=== PATIENT | male | born 1955 | race Caucasian/White ===

== ENCOUNTER → 2020-02-04 06:53 | Outpatient (CLI) | payer OTHER, SELFPAY ==
[2020-02-04 08:48] LABS: Add Manual Diff / Slide Review NO; Basophils Absolute Auto 0 /uL (0-100); Basophils Percent Auto 0.9 % (0-2); Eosinophils Absolute Auto 100 /uL (0-450); Eosinophils Percent Auto 1.6 % (2-4); Hematocrit 40.8 % (41-53); Hemoglobin 14.1 g/dL (13.5-17.5); Lymphocytes Absolute Auto 1500 /uL (1100-4500); Lymphocytes Percent Auto 42.1 % (25-40); Mean Corpuscular HGB Conc 34.4 % (30-36); Mean Corpuscular Hemoglobin 31.4 PG (26-34); Mean Corpuscular Volume 91.2 fL (80-100); Monocytes Absolute Auto 400 /uL (0-900); Monocytes Percent Auto 10.9 % (3-14); Neutrophils Absolute Auto 1600 /uL (1500-7000); Neutrophils Percent Auto 44.5 % (50-75); Platelet Count 281 X10^3/uL (150-400); Red Blood Cell Count 4.48 X10^6/uL (4.5-5.9); Red Cell Distribution Width 13.6 % (11.6-14.8); White Blood Cell Count 3.5 X10^3/uL (4.5-11.0)
[2020-02-04 09:29] LABS: Alanine Aminotransferase 27 IU/L (<50); Albumin Globulin Ratio 1.5 (1.0-2.8); Alkaline Phosphatase 57 U/L (38-126); Aspartate Aminotransferase 33 IU/L (17-59); BUN Creatinine Ratio 15.8 (6-22); Bilirubin Total 0.5 mg/dL (0.2-1.3); Blood Urea Nitrogen 15 mg/dL (9-20); Calcium 9.5 mg/dL (8.4-10.2); Carbon Dioxide 29 mmol/L (22-32); Chloride 99 mmol/L (98-107); Cholesterol 189 mg/dL (140-199); Estimated Glomerular Filt Rate > 60.0 mL/min (>60); Globulin 2.6 g/dL (1.7-4.1); Glucose 94 mg/dL (80-110); HDL Cholesterol 62 mg/dL (40-60); HEMOLYSIS < 15 (0-50); LDL Cholesterol Calculated 115 mg/dL (<100); Potassium 4.7 mmol/L (3.4-5.1); Sodium 131 mmol/L (137-145); Total Protein 6.6 g/dL (6.3-8.2); Triglycerides 60 mg/dL (35-150)
== END ==
PROVIDERS: PCP Family Medicine; Referring Provider Family Medicine; Visit Provider Family Medicine
DX: Z00.00 Encounter for general adult medical examination without abnormal findings (principal); Z13.220 Encounter for screening for lipoid disorders
CPT/HCPCS: 36415; 80053; 80061; 85025

== ENCOUNTER → 2020-02-11 16:25 | Outpatient (CLI) | payer OTHER, SELFPAY ==
[2020-02-11 18:28] LABS: Prostate Specific Antigen Scrn 2.15 ng/mL (0.1-4.0)
== END ==
PROVIDERS: PCP Family Medicine; Referring Provider Family Medicine; Visit Provider Family Medicine
DX: Z12.5 Encounter for screening for malignant neoplasm of prostate (principal)
CPT/HCPCS: 36415; G0103

== ENCOUNTER → 2020-11-08 12:53 | Outpatient (CLI) | payer OTHER, SELFPAY ==
--- NOTE | 2020-11-08 12:55 | DI.RAD.S_ITS ---
PROCEDURE: XR CHEST 2V INDICATIONS: wheezing TECHNIQUE: 2 views of the chest were acquired. COMPARISON: None. FINDINGS: Surgical changes and devices: None. Lungs and pleura: Lungs are hyperinflated but clear. No pleural effusions or pneumothorax. Mediastinum: Mediastinal contours are normal. Heart size is normal. Bones and chest wall: No suspicious bony abnormalities. Soft tissues appear unremarkable. IMPRESSION: Hyperinflation suggests asthma or emphysema. Dictated by: Crystal Brewer M.D. on 11/08/2020 at 14:29 Approved by: Crystal Brewer M.D. on 11/08/2020 at 14:29
== END ==
PROVIDERS: PCP Family Medicine; Referring Provider Family Medicine; Visit Provider Family Medicine
DX: R06.2 Wheezing (principal); R07.89 Other chest pain
CPT/HCPCS: 71046

== ENCOUNTER → 2020-12-01 09:20 | Outpatient (CLI) | payer OTHER, SELFPAY ==
[2020-12-01 10:36] LABS: COVID19 -Nasal RAPID Negative (Negative)
== END ==
PROVIDERS: PCP Family Medicine; Referring Provider Specialist; Visit Provider Specialist
DX: Z20.822 Contact with and (suspected) exposure to COVID-19 (principal)
CPT/HCPCS: 87635; C9803

== ENCOUNTER 2020-12-04 14:10 | Day surgery (SDC) | payer OTHER, SELFPAY ==
[2020-12-04] VITALS (7 sets, daily range): BP systolic 89–107; BP diastolic 53–64; PULSE 65–73; RESP 8–16; TEMP 36.3–37.1; O2SAT 95–100; BMI 23.2
--- NOTE | 2020-12-04 | PATH_ITS ---
[facility] Accession Number: [id number] . 01 Material submitted: . sigmoid colon - SIGMOID POLYP . 02 Diagnosis: Sigmoid Colon, Polyp, Biopsy: Hyperplastic polyp. MRV 12/06/2020 1244 Local . 02 Electronically signed: . Charisma Bowman MD, Pathologist NPI- [id number] . 01 Gross description: . SIGMOID POLYP: Received in formalin are 2 fragment(s) of mohr, soft tissue measuring 0.2 x 0.2 x 0.2 cm to 0.3 x 0.2 x 0.2 cm submitted entirely in 1 cassette(s) /BUNNY 12/05/2020 1856 Local . 02 Pathologist provided ICD-10: K63.5 . 02 CPT . 171889 Performed at: 01 [facility] [address] [id number] MD Dontrell Varghese MD Phone: [phone] Performed at: 02 [facility] [address] [place], [place] [id number] MD Charisma Bowman MD Phone: [phone]
[2020-12-04] MEDS: LACTATED RINGERS 1,000 ML 200 ML IV (14:40)
--- NOTE | 2020-12-04 14:53 | PM.PREOP ---
Pre-operative Note Interval Note History & Physical reviewed/Exam performed by Physician: Yes Changes to H&P: No
[2020-12-04] MEDS: fentaNYL 250 MCG/5 ML INJ IV (14:57)
[2020-12-04] MEDS: LIDOCAINE 4% SOLN 50 ML 20 ML TOP (14:57)
[2020-12-04] MEDS: MIDAZOLAM 5 MG/5 ML VIAL IV (14:58)
--- NOTE | 2020-12-04 15:39 | PM.OP.ENDO ---
Operative Date/Time/Diagnoses Date of procedure: 12/04/20 Time of procedure: 15:40 Pre-op diagnosis: Dysphagia, screening colonoscopy Post-op diagnosis: same Procedure & Clinicians Study performed: Esophagoduodenoscopy and colonoscopy Same procedure as scheduled: Yes Indications: Difficulty swallowing, screening Surgeon: Abdiaziz Polo Procedure Notes Procedure in detail: Medications: Conscious sedation using 7mg IV midazolam and 100mcg IV of fentanyl The history and physical was performed/updated and the patient is ASA class is 1. The procedure was discussed in detail with the patient. Potential risks complications including infection, bleeding, missed diagnosis, perforation, need for surgery, and were explained. Their questions were answered and informed consent was obtained. Patient placed in left lateral decubitus position. Time out was performed. Procedural sedation was administered with Versed and Fentanyl. A bite block was placed. the scope was inserted into the mouth and advanced through the esophagus and into the stomach. The pylorus was intubated and the duodenum was normal to the 2nd portion. The scope was retroflexed within the stomach and there was no small hiatal hernia. No ulcers, or gastritis. The scope was withdrawn into the esophagus the Z line was seen at 40 cm from the incisions. There was no Julien's esophagitis or masses or strictures. Stomach was desufflated and scope removed. The vocal cords and epiglotits were grossly normal in appearance. the posterior oropharynx was significant for thrush. Patient tolerated procedure well. Examination began with a thorough inspection of the perianal area there was no evidence of fissures, fistulae, external hemorrhoids or cutaneous malignancy. The colonoscopy scope was then placed into the anal canal and was advanced to the cecum, which was identified by the ileocecal valve, the appendiceal orifice and the confluence of the taenia. The scope was then slowly withdrawn examining colon thoroughly in all directions, irrigating it of any residual stool. The patient tolerated the procedure well. They will be discharged once criteria are met. The prep was of good/excellent quality. The withdrawl time was 6 minutes. The sedation time was 26 minutes. FINDINGS 1.Thrush 2. Sigmoid polyp 5mm removed with biopsy forceps 3. Grade 2 internal hemorrhoids Findings: other findings (thrush) Specimen(s): other (sigmoid polyp) Impression: thrush Post-procedure Recommendations: Colonscopy in 5 years and Other recommendation (nystatin) Disposition: same day surgery
--- NOTE | 2020-12-04 15:42 | SUR.PHASEI ---
Arrived arousable, patent airway, self maintained.
--- NOTE | 2020-12-04 15:53 | SUR.PHASEI ---
Stable PACU stay
--- NOTE | 2020-12-04 17:01 | SUR.PHASEII ---
called, waited for pharmacy picking technician, pt aware to stop at [facility] for nystatin
== END 2020-12-04 16:45 | disposition home or self-care (01) ==
PROVIDERS: PCP Family Medicine; Referring Provider Surgery; Visit Provider Surgery
PROC: 0DJ08ZZ Inspection of Upper Intestinal Tract, Via Natural or Artificial Opening Endoscopic (ICD-10-PCS; CPT 43235; principal; 2020-12-04 11:30)
PROC: 0DJD8ZZ Inspection of Lower Intestinal Tract, Via Natural or Artificial Opening Endoscopic (ICD-10-PCS; CPT 45378; 2020-12-04 11:30)
DX: Z12.11 Encounter for screening for malignant neoplasm of colon (principal); R13.10 Dysphagia, unspecified; K64.1 Second degree hemorrhoids; K21.00 Gastro-esophageal reflux disease with esophagitis, without bleeding; B37.81 Candidal esophagitis; K63.5 Polyp of colon
CPT/HCPCS: 45380; 43235; 99152; 99153; J2250; J3010

== ENCOUNTER → 2021-04-06 07:02 | Outpatient (CLI) | payer OTHER, SELFPAY ==
[2021-04-06 08:40] LABS: Add Manual Diff / Slide Review NO; Basophils Absolute Auto 0 /uL (0-100); Eosinophils Absolute Auto 100 /uL (0-450); Eosinophils Percent Auto 2.1 % (2-4); Hematocrit 39.4 % (41-53); Hemoglobin 13.6 g/dL (13.5-17.5); Lymphocytes Absolute Auto 1400 /uL (1100-4500); Lymphocytes Percent Auto 42.4 % (25-40); Mean Corpuscular HGB Conc 34.6 % (30-36); Mean Corpuscular Hemoglobin 31.4 PG (26-34); Mean Corpuscular Volume 90.9 fL (80-100); Monocytes Absolute Auto 400 /uL (0-900); Monocytes Percent Auto 12.3 % (3-14); Neutrophils Absolute Auto 1400 /uL (1500-7000); Neutrophils Percent Auto 42.2 % (50-75); Platelet Count 252 X10^3/uL (150-400); Red Blood Cell Count 4.33 X10^6/uL (4.5-5.9); Red Cell Distribution Width 13.7 % (11.6-14.8); White Blood Cell Count 3.3 X10^3/uL (4.5-11.0)
[2021-04-06 09:19] LABS: Alanine Aminotransferase 22 IU/L (<50); Albumin 3.9 g/dL (3.5-5.0); Albumin Globulin Ratio 1.7 (1.0-2.8); Alkaline Phosphatase 46 U/L (38-126); Aspartate Aminotransferase 28 IU/L (17-59); BUN Creatinine Ratio 12.2 (6-22); Bilirubin Total 0.6 mg/dL (0.2-1.3); Blood Urea Nitrogen 10 mg/dL (9-20); Calcium 9.3 mg/dL (8.4-10.2); Carbon Dioxide 28 mmol/L (22-32); Chloride 94 mmol/L (98-107); Cholesterol 181 mg/dL (140-199); Estimated Glomerular Filt Rate > 60.0 mL/min (>60); Globulin 2.3 g/dL (1.7-4.1); Glucose 93 mg/dL (80-110); HDL Cholesterol 53 mg/dL (40-60); HEMOLYSIS < 15 (0-50); LDL Cholesterol Calculated 118 mg/dL (<100); Potassium 4.8 mmol/L (3.4-5.1); Sodium 129 mmol/L (137-145); Total Protein 6.2 g/dL (6.3-8.2); Triglycerides 52 mg/dL (35-150)
[2021-04-06 09:38] LABS: Prostate Specific Antigen Scrn 2.35 ng/mL (0.1-4.0)
== END ==
PROVIDERS: PCP Family Medicine; Referring Provider Family Medicine; Visit Provider Family Medicine
DX: E78.00 Pure hypercholesterolemia, unspecified (principal); Z12.5 Encounter for screening for malignant neoplasm of prostate
CPT/HCPCS: 36415; 80053; 80061; 85025; G0103

== ENCOUNTER → 2021-04-18 08:37 | Outpatient (CLI) | payer OTHER, SELFPAY ==
[2021-04-18 13:30] LABS: COVID19 -Nasal RAPID POSITIVE (Negative)
== END ==
PROVIDERS: PCP Family Medicine; Visit Provider Nurse Practitioner Family
DX: Z20.822 Contact with and (suspected) exposure to COVID-19 (principal); R05.9 Cough, unspecified
CPT/HCPCS: 87635

== ENCOUNTER → 2021-07-24 16:09 | Outpatient (CLI) | payer OTHER, SELFPAY | PROVIDERS: PCP Family Medicine; Visit Provider Family Medicine | DX: M70.22 Olecranon bursitis, left elbow (principal) | CPT/HCPCS: 87070; 87075; 87205 ==

== ENCOUNTER → 2022-03-15 07:01 | Outpatient (CLI) | payer OTHER, SELFPAY ==
[2022-03-15 08:08] LABS: Add Manual Diff / Slide Review NO; Basophils Absolute Auto 0 /uL (0-100); Eosinophils Absolute Auto 100 /uL (0-450); Eosinophils Percent Auto 2.1 % (2-4); Hematocrit 43.1 % (41-53); Hemoglobin 14.6 g/dL (13.5-17.5); Lymphocytes Absolute Auto 1600 /uL (1100-4500); Lymphocytes Percent Auto 47.2 % (25-40); Mean Corpuscular Hemoglobin 30.9 PG (26-34); Mean Corpuscular Volume 91.1 fL (80-100); Monocytes Absolute Auto 300 /uL (0-900); Monocytes Percent Auto 10.2 % (3-14); Neutrophils Absolute Auto 1300 /uL (1500-7000); Neutrophils Percent Auto 39.5 % (50-75); Platelet Count 248 X10^3/uL (150-400); Red Blood Cell Count 4.73 X10^6/uL (4.5-5.9); White Blood Cell Count 3.3 X10^3/uL (4.5-11.0)
[2022-03-15 08:44] LABS: Alanine Aminotransferase 27 IU/L (<50); Albumin Globulin Ratio 1.5 (1.0-2.8); Alkaline Phosphatase 54 U/L (38-126); Aspartate Aminotransferase 33 IU/L (17-59); BUN Creatinine Ratio 13.3 (6-22); Bilirubin Total 0.6 mg/dL (0.2-1.3); Blood Urea Nitrogen 11 mg/dL (9-20); Calcium 9.2 mg/dL (8.4-10.2); Carbon Dioxide 30 mmol/L (22-32); Chloride 96 mmol/L (98-107); Cholesterol 197 mg/dL (140-199); Estimated Glomerular Filt Rate > 60 mL/min (>60); Globulin 2.7 g/dL (1.7-4.1); Glucose 86 mg/dL (80-110); HDL Cholesterol 62 mg/dL (40-60); HEMOLYSIS < 15 (0-50); LDL Cholesterol Calculated 126 mg/dL (<100); Potassium 4.5 mmol/L (3.4-5.1); Sodium 133 mmol/L (137-145); Total Protein 6.7 g/dL (6.3-8.2); Triglycerides 47 mg/dL (35-150)
[2022-03-15 09:08] LABS: Prostate Specific Antigen Scrn 2.79 ng/mL (0.1-4.0)
== END ==
PROVIDERS: PCP Family Medicine; Referring Provider Family Medicine; Visit Provider Family Medicine
DX: Z00.00 Encounter for general adult medical examination without abnormal findings (principal); E78.00 Pure hypercholesterolemia, unspecified; Z12.5 Encounter for screening for malignant neoplasm of prostate
CPT/HCPCS: 36415; 80053; 80061; 85025; G0103

== ENCOUNTER → 2022-06-07 09:12 | Outpatient (CLI) | payer OTHER, SELFPAY ==
--- NOTE | 2022-06-07 09:13 | DI.RAD.S_ITS ---
PROCEDURE: XR HIP W PEL IF DONE RT 2V INDICATIONS: groin pain TECHNIQUE: AP pelvis with lateral view(s) of the right hip(s). COMPARISON: None. FINDINGS: Bones: No fractures or dislocations. Pelvic ring appears intact. No suspicious bony lesions. [id number]-cl-[id number] bilateral degenerative hip joint space narrowing, right greater than left. No erosions. Soft tissues: The visualized bowel gas pattern is normal. No suspicious soft tissue calcifications. IMPRESSION: Bilateral hip arthritis, right greater than left. Dictated by: Diamond Love M.D. on 06/07/2022 at 12:23 Approved by: Diamond Love M.D. on 06/07/2022 at 12:24
== END ==
PROVIDERS: PCP Family Medicine; Referring Provider Family Medicine; Visit Provider Family Medicine
DX: M25.551 Pain in right hip (principal); M16.0 Bilateral primary osteoarthritis of hip
CPT/HCPCS: 73502

== ENCOUNTER → 2022-11-13 08:08 | Outpatient (CLI) | payer OTHER, SELFPAY ==
--- NOTE | 2022-11-13 08:09 | DI.RAD.S_ITS ---
PROCEDURE: XR SHOULDER LT MIN 2V INDICATIONS: Left Shoulder Pain TECHNIQUE: 3 views of the shoulder were acquired. COMPARISON: None. FINDINGS: Bones: No fractures or dislocations. No suspicious bony lesions. Mild degenerative changes of the acromioclavicular and glenohumeral joints. Mild marginal spurring of the glenohumeral joint. Visualized ribs appear intact. Soft tissues: No suspicious soft tissue calcifications. IMPRESSION: Mild degenerative changes of the glenohumeral and acromioclavicular joints. Dictated by: Priyank Quintanilla M.D. on 11/13/2022 at 8:53 Approved by: Priyank Quintanilla M.D. on 11/13/2022 at 8:55
== END ==
PROVIDERS: PCP Family Medicine; Referring Provider Anesthesiology; Visit Provider Anesthesiology
DX: M75.42 Impingement syndrome of left shoulder (principal); M19.012 Primary osteoarthritis, left shoulder; M25.512 Pain in left shoulder
CPT/HCPCS: 73030; 76882; 99213

== ENCOUNTER → 2022-11-25 13:48 | Outpatient (CLI) | payer OTHER, SELFPAY ==
--- NOTE | 2022-11-25 14:06 | DI.MRI.S_ITS ---
PROCEDURE: MR SHOULDER LT WO CON INDICATIONS: left shoulder bicep and subscapularis TECHNIQUE: Noncontrast oblique coronal T2 fast spin echo with fat saturation, oblique sagittal T1 spin echo and T2 fast spin echo with fat saturation, axial T1 spin echo and T2 fast spin echo with fat saturation through the shoulder. COMPARISON: [facility], CR, XR SHOULDER LT MIN 2V, 11/13/2022, 8:04. FINDINGS: Image quality: Excellent. Rotator cuff: Moderate T2 signal elevation diffusely throughout the supraspinatus and infraspinatus tendons at the humeral insertion sites extending to the musculotendinous junctions, indicating tendinopathy. Low-grade articular surface tearing of the anterior supraspinatus as well as the posterior supraspinatus and anterior infraspinatus tendon junctions the humeral insertion sites extending to the musculotendinous junction. Low-grade partial-thickness intrasubstance tearing of the upper, mid, and inferior subscapularis tendon at the humeral insertion site extending to the musculotendinous junction. Teres minor is intact. Bones and bursae: No bone marrow contusions or fractures. Moderate acromioclavicular joint degeneration. The acromion demonstrates conventional anatomy, without an os acromiale. No pathologic subacromial-subdeltoid or subcoracoid bursal fluid is present. Capsule and soft tissues: There is undercutting of the posteroinferior labrum secondary to high T2 signal. The long head of the biceps tendon demonstrates normal location and partial-thickness tearing. The rotator interval appears normal, without fibrosis. The coracohumeral ligament is normal in thickness. IMPRESSION: 1. Supraspinatus and infraspinatus tendinopathy. 2. Low-grade partial-thickness tears of the subscapularis, supraspinatus, and infraspinatus tendons. 3. Acromioclavicular joint osteoarthritis. 4. Possible posterior labral tearing. 5. Partial thickness biceps tendon tearing. Dictated by: Morgan Manrique M.D. on 11/25/2022 at 14:35 Approved by: Morgan Manrique M.D. on 11/25/2022 at 14:39
== END ==
PROVIDERS: PCP Family Medicine; Referring Provider Physical Medicine & Rehabilitation; Visit Provider Physical Medicine & Rehabilitation
DX: M75.112 Incomplete rotator cuff tear or rupture of left shoulder, not specified as traumatic (principal); M19.012 Primary osteoarthritis, left shoulder; S46.112A Strain of muscle, fascia and tendon of long head of biceps, left arm, initial encounter; M75.42 Impingement syndrome of left shoulder
CPT/HCPCS: 73221

== ENCOUNTER → 2023-04-16 06:58 | Outpatient (CLI) | payer OTHER, SELFPAY ==
[2023-04-16 08:30] LABS: Add Manual Diff / Slide Review NO; Basophils Absolute Auto 0 /uL (0-100); Basophils Percent Auto 0.9 % (0-2); Eosinophils Absolute Auto 100 /uL (0-450); Eosinophils Percent Auto 2.5 % (2-4); Hematocrit 42.1 % (41-53); Hemoglobin 14.5 g/dL (13.5-17.5); Lymphocytes Absolute Auto 1700 /uL (1100-4500); Mean Corpuscular HGB Conc 34.4 % (30-36); Mean Corpuscular Hemoglobin 31.2 PG (26-34); Mean Corpuscular Volume 90.8 fL (80-100); Monocytes Absolute Auto 400 /uL (0-900); Monocytes Percent Auto 11.3 % (3-14); Neutrophils Absolute Auto 1500 /uL (1500-7000); Neutrophils Percent Auto 40.3 % (50-75); Platelet Count 257 X10^3/uL (150-400); Red Blood Cell Count 4.64 X10^6/uL (4.5-5.9); Red Cell Distribution Width 13.5 % (11.6-14.8); White Blood Cell Count 3.8 X10^3/uL (4.5-11.0)
[2023-04-16 08:52] LABS: Alanine Aminotransferase 25 IU/L (<50); Albumin 4.1 g/dL (3.5-5.0); Albumin Globulin Ratio 1.5 (1.0-2.8); Alkaline Phosphatase 49 U/L (38-126); Aspartate Aminotransferase 32 IU/L (17-59); BUN Creatinine Ratio 12.5 (6-22); Bilirubin Total 0.8 mg/dL (0.2-1.3); Blood Urea Nitrogen 11 mg/dL (9-20); Calcium 9.4 mg/dL (8.4-10.2); Carbon Dioxide 26 mmol/L (22-32); Chloride 96 mmol/L (98-107); Cholesterol 203 mg/dL (140-199); Estimated Glomerular Filt Rate > 60 mL/min (>60); Globulin 2.7 g/dL (1.7-4.1); Glucose 89 mg/dL (80-110); HDL Cholesterol 55 mg/dL (40-60); HEMOLYSIS < 15 (0-50); LDL Cholesterol Calculated 138 mg/dL (<100); Potassium 4.9 mmol/L (3.4-5.1); Sodium 129 mmol/L (137-145); Total Protein 6.8 g/dL (6.3-8.2); Triglycerides 49 mg/dL (35-150)
[2023-04-16 09:21] LABS: Prostate Specific Antigen Scrn 3.72 ng/mL (0.1-4.0)
== END ==
PROVIDERS: PCP Family Medicine; Referring Provider Family Medicine; Visit Provider Family Medicine
DX: Z12.5 Encounter for screening for malignant neoplasm of prostate (principal); E78.00 Pure hypercholesterolemia, unspecified; E87.1 Hypo-osmolality and hyponatremia; D72.810 Lymphocytopenia
CPT/HCPCS: 36415; 80053; 80061; 85025; G0103

== ENCOUNTER → 2023-06-27 06:56 | Outpatient (CLI) | payer OTHER, SELFPAY ==
[2023-06-27 10:40] LABS: Prostate Specific Antigen 3.06 ng/mL (0.10-4.00)
== END ==
LOC: LAB 06:57
PROVIDERS: PCP Family Medicine; Referring Provider Family Medicine; Visit Provider Family Medicine
DX: R97.20 Elevated prostate specific antigen [PSA] (principal)
CPT/HCPCS: 36415; 84153

== ENCOUNTER → 2023-07-04 07:59 | Outpatient (CLI) | payer OTHER, SELFPAY ==
[2023-07-04 09:06] LABS: Cholesterol 201 mg/dL (140-199); HDL Cholesterol 61 mg/dL (40-60); LDL Cholesterol Calculated 120 mg/dL (<100); Triglycerides 102 mg/dL (35-150)
[2023-07-04 09:35] LABS: Prostate Specific Antigen Scrn 3.71 ng/mL (0.1-4.0)
== END ==
PROVIDERS: PCP Family Medicine; Referring Provider Family Medicine; Visit Provider Family Medicine
DX: E78.00 Pure hypercholesterolemia, unspecified (principal); Z12.5 Encounter for screening for malignant neoplasm of prostate; R97.20 Elevated prostate specific antigen [PSA]
CPT/HCPCS: 36415; 80061; G0103

== ENCOUNTER → 2024-03-23 07:04 | Outpatient (CLI) | payer OTHER, SELFPAY ==
[2024-03-23 09:14] LABS: Prostate Specific Antigen Scrn 3.98 ng/mL (0.1-4.0)
== END ==
PROVIDERS: PCP Family Medicine; Referring Provider Family Medicine; Visit Provider Family Medicine
DX: Z12.5 Encounter for screening for malignant neoplasm of prostate (principal)
CPT/HCPCS: 36415; G0103

== ENCOUNTER 2024-09-13 12:55 | Emergency (ER) | payer OTHER, SELFPAY ==
[2024-09-13 13:22] VITALS: BP 136/72; PULSE 69; RESP 16; TEMP 36.6; O2SAT 97; BMI 23.6
[2024-09-13 14:46] LABS: Urine Volume 10mL (spun)
[2024-09-13 14:48] LABS: Bacteria Urine None Seen; Culture Indicated Urine Specimen Cultured; Squamous Epithelial Cell Urine None Seen (0-5/HPF); WBC Urine 10-30/HPF (0-5/HPF)
[2024-09-13 14:55] LABS: RBC Urine None Seen (0-5/HPF)
--- NOTE | 2024-09-13 15:19 | ED_ITS ---
HPI - Male Genitourinary General Chief complaint: Urogenital-Male Stated complaint: sent from PCP Possible UTI Time Seen by Provider: 09/13/24 14:12 Source: patient Mode of arrival: Ambulatory History of Present Illness HPI Narrative: 69-year-old male with no chronic medical issues presents to the emergency department for evaluation of difficulty with urination and dysuria for 4 days. On review of systems endorses constipation, denies fever flank pain or abdominal pain. Reports is having his PSAs serial checked by his PCP but no formal diagnosis of enlarged prostate. Patient denies any genitourinary swelling. No testicular pain Review of systems 6 point review of systems obtained and negative except as stated in HPI Related Data Home Medications Medication Instructions Recorded Confirmed No Known Home Medications 06/06/22 09/13/24 Allergies Allergy/AdvReac Type Severity Reaction Status Date / Time No Known Drug Allergies Allergy Verified 09/13/24 13:24 Patient History Medical History Upper extremity somatic dysfunction Finger pain, right Right medial knee pain Increased prostate specific antigen (PSA) velocity Acute degenerative joint disease of shoulder region Subacromial impingement of left shoulder Injury of left shoulder Olecranon bursitis, left elbow Acute right hip pain Dupuytren's contracture of left hand Seborrheic keratosis Hyponatremia Lymphopenia Chronic throat clearing Pure hypercholesterolemia Lumbar region somatic dysfunction Thoracic region somatic dysfunction Cervical somatic dysfunction Hyperinflation of lungs Wheezing on exhalation Sensation of chest tightness Sacral region somatic dysfunction Pelvic somatic dysfunction Segmental and somatic dysfunction of abdomen and other regions Encounter for screening colonoscopy Atypical nevi Changes in vision Back stiffness Foot pain (~2013) Ankle pain (~2013) Mumps Measles Chicken pox Hearing loss Irritable bowel syndrome History of basal cell cancer Segmental and somatic dysfunction of lower extremity Contracture, left foot GERD without esophagitis Family History Mother Cancer Brother No problems noted. Social History household members: spouse Smoking Status: Never smoker alcohol intake: never substance use type: does not use Smoking Status: Never smoker Exam Initial Vital Signs Initial Vital Signs: Vital Signs Temperature 98 F 09/13/24 13:22 Pulse Rate 69 09/13/24 13:22 Respiratory Rate 16 09/13/24 13:22 Blood Pressure 136/72 09/13/24 13:22 Pulse Oximetry 97 09/13/24 13:22 Oxygen Delivery Method Room Air 09/13/24 13:22 Constitutional: Well appearing, no acute distress Head: NCAT Cardiovascular: RRR, no murmur or rub, 2+ radial pulses Pulmonary: CTA bilaterally, no respiratory distress Abdominal: soft, non-tender, no pulsatile mass, no CVA tenderness Skin: warm and dry, no diaphoresis Neurological: Alert and oriented x3 Const General: healthy appearing Course Orders Ordered: ED Orders 09/13/24 14:35 Urine Culture Stat Urine Microscopic Stat Vital Signs Vital signs: Vital Signs - 8 hr 09/13/24 13:22 Temperature 98 F Pulse Rate 69 Respiratory Rate 16 Blood Pressure 136/72 Pulse Oximetry 97 Oxygen Delivery Method Room Air MDM - Male Genitourinary Medical Records Medical records narrative: Differential diagnoses considered for dysuria include acute cystitis or urethritis, prostatitis, urolithiasis, urethral stricture or obstruction, interstitial cystitis UA shows +WBCs without RBCs or bacteria. PVR = 80 cc Informed patient and family of pyuria. We discussed possible etiology of cystitis although given symptoms have improved for patient over the last half day he would like to avoid antibiotics unless confirmed to be bacterial infection. Urinalysis is sent for culture. He is relieved to hear he is not having urinary retention. At this time patient is eager for discharge so that he can catch the [place] [facility]. He is provided with referral to urologist. Return precautions discussed and provided prior to discharge Lab Data Labs: Lab Results 09/13/24 Range/Units 14:35 Urine RBC None seen (0-5/HPF) Urine WBC 10-30/hpf H (0-5/HPF) Ur Squamous Epith Cells None seen (0-5/HPF) Urine Bacteria None seen (None) Ur Culture Indicated? Specimen cultured Vol Urine Centrifuged 10ml (spun) Urine Dip Bedside Urine Glucose Negative Bedside Urine Bilirubin - Negative Bedside Urine Ketone - Negative Urine Specific [place] 1.005 Bedside Urine Occult Blood - Negative Bedside Urine pH 6.5 Bedside Urine Protein - Negative Bedside Urine Urobilinogen - Negative Bedside Urine Nitrite - Negative Bedside Urine Leukocytes + 70 Esterase Discharge Plan Departure Patient Disposition: Home Clinical Impression: Dysuria Instructions: DI for Dysuria -- Adult Activity Restrictions/Additional Instructions: Urinalysis today was weakly positive for urinary tract infection and that it did show elevated white blood cells without blood or bacteria. It will be sent to culture. If you require antibiotics we will let you know. Since we are not starting antibiotics today please monitor your symptoms closely. Return to the emergency department if you develop worsening symptoms or new symptoms such as abdominal or flank pain, fever, vomiting or not able to urinate. Otherwise, follow up with your family doctor and/or urologist Prescriptions: No Action No Known Home Medications Referrals: Caden Oh MD, MS [Non-Staff] - (urinary retention) Beltran Angela DO [Primary Care Provider] - Stand Alone Forms: Patient Portal/API/Survey
== END 2024-09-13 15:36 | disposition home or self-care (01) ==
PROVIDERS: Emergency Medicine; Emergency Provider Student in an Organized Health Care Education/Training Program; PCP Family Medicine
DX: R30.0 Dysuria (principal)
CPT/HCPCS: 81003; 81015; 87077; 87086; 87186; 99281; 99282

== ENCOUNTER → 2024-10-27 15:25 | Outpatient (CLI) | payer OTHER, SELFPAY ==
--- NOTE | 2024-10-27 15:26 | DI.RAD.S_ITS ---
PROCEDURE: XR LUMBAR SPINE 2-3V INDICATIONS: low back pain TECHNIQUE: 3 views of the lumbar spine were acquired. COMPARISON: None. FINDINGS: Bones: 5 vyl-iye-gajginb vertebrae are present. Mild scoliosis. No vertebral body compression fractures. Disc space height loss at L5-S1. Small vertebral body osteophytes. Lower lumbar spine facet joint hypertrophy. No suspicious bony lesions. Soft tissues: Overlying bowel gas pattern is normal. No suspicious soft tissue calcifications. IMPRESSION: Moderate DDD most pronounced at the L5-S1 level. Mild scoliosis. Dictated by: Darius Will M.D. on 10/28/2024 at 12:44 Approved by: Darius Will M.D. on 10/28/2024 at 12:45
== END ==
PROVIDERS: PCP Family Medicine; Referring Provider Nurse Practitioner Family; Visit Provider Nurse Practitioner Family
DX: M51.379 Other intervertebral disc degeneration, lumbosacral region without mention of lumbar back pain or lower extremity pain (principal); M47.817 Spondylosis without myelopathy or radiculopathy, lumbosacral region; M25.78 Osteophyte, vertebrae; M41.9 Scoliosis, unspecified; M54.50 Low back pain, unspecified
CPT/HCPCS: 72100

== ENCOUNTER → 2025-02-24 08:00 | Outpatient (CLI) | payer OTHER, SELFPAY ==
--- NOTE | 2025-02-24 08:01 | DI.RAD.S_ITS ---
PROCEDURE: XR FOOT LT MIN 3V INDICATIONS: Left foot pain TECHNIQUE: 3 views of the foot were acquired. COMPARISON: None. FINDINGS: Bones: No fractures or dislocations. Mxce-es-aoxgesdz diffuse interphalangeal and 1st MTP joint degeneration. No suspicious bony lesions. Soft tissues: No tibiotalar joint effusion. Achilles tendon appears normal. IMPRESSION: Wafe-cn-adxbtxcd degenerative changes. No acute osseous abnormalities. Dictated by: Priyank Quintanilla M.D. on 02/26/2025 at 13:45 Approved by: Priyank Quintanilla M.D. on 02/26/2025 at 13:46
== END ==
PROVIDERS: PCP Family Medicine; Referring Provider Family Medicine; Visit Provider Family Medicine
DX: M79.672 Pain in left foot (principal)
CPT/HCPCS: 73630

== ENCOUNTER → 2025-04-01 06:55 | Outpatient (CLI) | payer OTHER, SELFPAY ==
[2025-04-01 07:45] LABS: Add Manual Diff / Slide Review NO; Hematocrit 41.5 % (41-53); Hemoglobin 14.3 g/dL (13.5-17.5); Lymphocytes Absolute Auto 1400 /uL (1100-4500); Mean Corpuscular HGB Conc 34.4 % (30-36); Mean Corpuscular Hemoglobin 31.1 PG (26-34); Mean Corpuscular Volume 90.5 fL (80-100); Platelet Count 261 X10^3/uL (150-400)
[2025-04-01 08:26] LABS: Alanine Aminotransferase 24 IU/L (<50); Albumin 3.8 g/dL (3.5-5.0); Albumin Globulin Ratio 1.5 (1.0-2.8); Alkaline Phosphatase 61 U/L (38-126); Blood Urea Nitrogen 13 mg/dL (9-20); Calcium 9.2 mg/dL (8.4-10.2); Carbon Dioxide 24 mmol/L (22-32); Chloride 99 mmol/L (98-107); Cholesterol 182 mg/dL (140-199); Estimated Glomerular Filt Rate > 60 mL/min (>60); Globulin 2.5 g/dL (1.7-4.1); Glucose 103 mg/dL (70-99); HDL Cholesterol 58 mg/dL (40-60); HEMOLYSIS < 15 (0-50); Potassium 4.5 mmol/L (3.4-5.1); Sodium 130 mmol/L (137-145); Total Protein 6.3 g/dL (6.3-8.2); Triglycerides 71 mg/dL (35-150)
== END ==
PROVIDERS: PCP Family Medicine; Referring Provider Family Medicine; Visit Provider Family Medicine
DX: Z12.5 Encounter for screening for malignant neoplasm of prostate (principal); E78.00 Pure hypercholesterolemia, unspecified; D72.810 Lymphocytopenia; E87.1 Hypo-osmolality and hyponatremia; R97.20 Elevated prostate specific antigen [PSA]
CPT/HCPCS: 36415; 80053; 80061; 85025; G0103